=== PATIENT | female | born 1990 | race Caucasian/White ===

== ENCOUNTER 2016-04-05 14:03 | Emergency (ER) | payer OTHER ==
[2016-04-05] MEDS ORDERED: Ondansetron INJ* 2 MG/ML VIAL IV ONE (14:29)
[2016-04-05] MEDS ORDERED: Morphine INJ* 4 MG/ML 1 ML CARPUJECT IV ONE ×2 (14:29→14:34)
[2016-04-05] MEDS ORDERED: NS 0.9% 1000 ML* 1,000 ML IV ONE (14:33)
[2016-04-05 14:43] LABS: Hematocrit 42 % (35-47); Hemoglobin 14.2 g/dl (12.0-16.0); Mean Corpuscular HGB Conc 34 g/dl (31-36); Mean Corpuscular Hemoglobin 30 pg (27-31); Mean Corpuscular Volume 88 fL (80-97); Mean Platelet Volume 8 um3 (7.4-10.4); Red Blood Count 4.76 10^6/ul (4.0-5.4); Red Cell Distribution Width 13 % (10.5-15); White Blood Count 6.4 10^3/ul (3.5-10.8)
[2016-04-05] MEDS ORDERED: Ketorolac INJ* 30 MG/ML 1 ML VIAL IV PUSH ONE (14:44)
[2016-04-05 14:55] LABS: ALT 8 U/L (7-52); AST 13 U/L (13-39); Albumin 4.5 g/dL (3.2-5.2); Alkaline Phosphatase 60 U/L (34-104); Anion Gap 5 mmol/L (2-11); BUN/Creatinine Ratio 14.1 (8-20); Blood Urea Nitrogen 11 mg/dL (6-24); CO2 Carbon Dioxide 28 mmol/L (22-32); Calcium 9.6 mg/dL (8.6-10.3); Chloride 104 mmol/L (101-111); EGFR African American 116.7 (>60); EGFR Non-African American 90.7 (>60); Globulin 2.4 g/dL (2-4); Glucose 88 mg/dL (70-100); Potassium 3.6 mmol/L (3.5-5.0); Sodium 137 mmol/L (133-145); Total Protein 6.9 g/dL (6.4-8.9)
[2016-04-05] MEDS ORDERED: Iohexol 300* (CONTRAST) 10 ML SDV IV ONE (15:23)
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
--- NOTE | 2016-04-05 17:50 | RAD ---
Indication: Right wrist injury 3 views of the wrist demonstrates no fracture. No other bone or joint abnormality is identified. IMPRESSION: NO FRACTURE OF THE WRIST IS NOTED.
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
--- NOTE | 2016-04-05 17:55 | RAD ---
Indication: Right arm pain. 2 views of the right upper arm demonstrates no fracture. AC joint arthritis is noted. IMPRESSION: No fracture of the right upper ARM is noted.
[2016-04-05 18:34] VITALS: BP 116/42
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
== END 2016-04-05 18:59 | disposition home or self-care (01) ==
LOC: ED 14:03
DX: S16.1XXA Strain of muscle, fascia and tendon at neck level, initial encounter (principal); S20.219A Contusion of unspecified front wall of thorax, initial encounter; S30.1XXA Contusion of abdominal wall, initial encounter; S40.021A Contusion of right upper arm, initial encounter; R06.02 Shortness of breath; F41.9 Anxiety disorder, unspecified; V43.52XA Car driver injured in collision with other type car in traffic accident, initial encounter; Y93.9 Activity, unspecified; Y92.9 Unspecified place or not applicable
CPT/HCPCS: 36415; 71260; 72125; 74177; 80053; 84702; 85025; 93005; 96374; 96375; 99282; J1885; J2270; J2405; Q9967

== ENCOUNTER 2018-09-25 16:59 | Emergency (ER) | payer OTHER ==
[2018-09-25] MEDS ORDERED: Ketorolac INJ* 30 MG/ML 1 ML VIAL IM ONE (18:19)
--- NOTE | 2018-09-25 19:48 | ED ---
Upper Extremity Pain - HPI Summary HPI Summary: 27-year-old female presents with complaints of left index finger pain. States she recently had acrylic fingernails put on and then subsequentlyy broke the acrylic nail on her index finger causing a fracture to the underlying fingernail. Patient states she started developing some pain, redness, swelling of the distal finger and went to [facility] earlier today for evaluation. They felt that she may have developed an infection under the fingernail and were recommending removal of the nail to allow any pus under the fingernail to drain however after they attempted to perform a digital block the patient states she developed severe pain at the base of the finger and decided to leave their facility and come here. Complains of swelling at the base of the finger reports she has some decreased range of motion due to the swelling and pain. Denies fever, chills, streaking, drainage, numbness, or tingling. - History of Current Complaint Chief Complaint: EDExtremityUpper Stated Complaint: POSSIBLE INFECTTION LT POINTER FINGER PER PT Time Seen by Provider: 09/25/18 17:46 Hx Obtained From: Patient - Allergies/Home Medications Allergies/Adverse Reactions: Allergies Allergy/AdvReac Type Severity Reaction Status Date / Time No Known Allergies Allergy Verified 09/25/18 17:08 Home Medications: Home Medications Venlafaxine HCl [Effexor XR-] 37.5 mg PO WEEKLY 09/25/18 [History Confirmed ] PMH/Surg Hx/FS Hx/Imm Hx Endocrine/Hematology History: Reports: Hx Thyroid Disease - hypo Denies: Hx Diabetes Infectious Disease History: No Infectious Disease History: Denies: Traveled Outside the [place] in Last 30 Days - Family History Known Family History: Positive: Cardiac Disease, Hypertension, Diabetes - Social History Alcohol Use: None Substance Use Type: Reports: None Smoking Status (MU): Never Smoked Tobacco Review of Systems Negative: Fever, Chills Cardiovascular: Negative Respiratory: Negative Gastrointestinal: Negative Genitourinary: Negative Musculoskeletal: Other - See HPI Skin: Other - See HPI Neurological: Negative All Other Systems Reviewed And Are Negative: Yes Physical Exam - Summary Physical Exam Summary: GENERAL APPEARANCE: Well developed, well nourished, alert and cooperative, and appears to be in no acute distress. CARDIAC: Normal S1 and S2. No S3, S4 or murmurs. Rhythm is regular. There is no peripheral edema, cyanosis or pallor. Extremities are warm and well perfused. Capillary refill is less than 2 seconds. Peripheral pulses intact. LUNGS: Clear to auscultation without rales, rhonchi, wheezing or diminished breath sounds. ABDOMEN: Positive bowel sounds. Soft, nondistended, nontender. No guarding or rebound. No masses or hepatosplenomegally. MUSKULOSKELETAL: Normal muscular development. Normal gait. EXTREMITIES: Generalized tenderness to the left index finger but most prominent at the MCP. Mild edema. No gross deformity or ecchymosis noted. There is mild erythema to the tip of the index finger with a small linear fracture noted to the mid distal fingernail. No drainage noted. SKIN: Skin normal color, texture and turgor. Triage Information Reviewed: Yes Vital Signs On Initial Exam: Initial Vitals Temp Pulse Resp BP Pulse Ox 98.7 F 93 16 147/99 97 09/25/18 17:02 09/25/18 17:02 09/25/18 17:02 09/25/18 17:02 09/25/18 17:02 Vital Signs Reviewed: Yes Diagnostics - Vital Signs Vital Signs Temp Pulse Resp BP Pulse Ox 09/25/18 17:02 98.7 F 93 16 147/99 97 - Laboratory Lab Statement: Any lab studies that have been ordered have been reviewed, and results considered in the medical decision making process. Course/Dx - Course Course Of Treatment: 27-year-old female presents with complaints of left index finger pain. States she recently had acrylic fingernails put on and then subsequentlyy broke the acrylic nail on her index finger causing a fracture to the underlying fingernail. Patient states she started developing some pain, redness, swelling of the distal finger and went to [facility] earlier today for evaluation. They felt that she may have developed an infection under the fingernail and were recommending removal of the nail to allow any pus under the fingernail to drain however after they attempted to perform a digital block the patient states she developed severe pain at the base of the finger and decided to leave their facility and come here. Complains of swelling at the base of the finger reports she has some decreased range of motion due to the swelling and pain. Denies fever, chills, streaking, drainage, numbness, or tingling. Afebrile. VSS. Patient had generalized tenderness to the left index finger but most prominent at the MCP. Mild edema. No gross deformity or ecchymosis noted. There is mild erythema to the tip of the index finger with a small linear fracture noted to the mid distal fingernail. No drainage noted. She was given ketoralac 30 mg IM for the pain with good relief. X-ray of the finger was negative. Since patient had recieved a digital block and there was no evidence of a collection of pus under the nail, decision was made to not attempt an I&D or nail removal at this time. Will place her on Bactrim DS 1 tab twice daily for 7 days to treat the infection. She is to follow up with her PCP in 3 days for reheck of infection. Anticipatory guidance and warning symptoms reviewed with the patient. Verbalizes understanding and agrees with POC. - Diagnoses Provider Diagnoses: Infection of fingernail of left hand Discharge - Sign-Out/Discharge Documenting (check all that apply): Patient Departure Patient Received Moderate/Deep Sedation with Procedure: No - Discharge Plan Condition: Stable Disposition: HOME Prescriptions: Naproxen [Naproxen 500 mg tab] 500 mg PO Q12HR PRN #30 tablet PRN Reason: Pain - Moderate Sulfamethox/Trimethoprim DS* [Bactrim DS 800/160 TAB*] 1 tab PO BID #14 tab Patient Education Materials: Cellulitis (ED) Referrals: Cass Edwards [Primary Care Provider] - 3 Days Additional Instructions: The x-ray of the finger that was performed in the emergency room tonight was normal. I suspect that the pain you are experiencing is secondary to the medication was injected into finger earlier today although it may also be related to the infection therefore we will start should've an antibiotic. Start Bactrim DS 1 tablet twice a day for 7 days. You're given a shot of an anti-inflammatory pain medication called ketorolac at 6:30 pm for your pain. Do not take any other anti-inflammatory pain medications such as ibuprofen (Advil, Motrin), naproxen (Aleve), or aspirin for at least 8 hours after receiving this medication. Take naproxen 500 mg 1 tablet every 12 hours as needed for pain. Soak the finger in a warm water and Epsom salt solution 3-4 times a day. Follow-up with your primary care provider in 3 days for recheck of the infection. Return to the emergency room if you have fever greater than 100.5 F, increased redness or swelling of the finger, severe pain that is not managed with the pain medication, or any worsening of symptoms. - Billing Disposition and Condition Condition: STABLE Disposition: Home
[2018-09-25] MEDS ORDERED: Sulfamethox/Trimethoprim DS 800/160* TAB PO ONE (20:17)
[2018-09-25 20:30] VITALS: BP 115/56
== END 2018-09-25 20:31 | disposition home or self-care (01) ==
LOC: ED 16:59
DX: L03.012 Cellulitis of left finger (principal)
CPT/HCPCS: 73140; 96372; 99282; A9270-GY; J1885

== ENCOUNTER 2019-10-23 19:08 | Inpatient (IN) ==
[2019-10-23 21:30] LABS: Hematocrit 34 % (35-47); Hemoglobin 12.1 g/dL (12.0-16.0); Mean Corpuscular HGB Conc 35 g/dL (31-36); Mean Corpuscular Hemoglobin 30 pg (27-31); Mean Corpuscular Volume 86 fL (80-97); Mean Platelet Volume 7.8 fL (7.4-10.4); Platelet Count 241 10^3/uL (150-450); Red Cell Distribution Width 13 % (10-15); White Blood Count 9.7 10^3/uL (3.5-10.8)
[2019-10-23] MEDS ORDERED: Ondansetron 4 mg VIAL 2 MG/ML 2 ml VIAL IV ONE (21:30)
[2019-10-23] MEDS ORDERED: Lactated Ringers 1000 ml BAG 1,000 ML IV ONE (21:36)
[2019-10-23 21:47] LABS: Urine Benzodiazepine Screen None Detected (None Detect); Urine Opiates Screen None Detected (None Detect)
[2019-10-23] MEDS: Lactated Ringers 1000 ml BAG 1,000 ML IV SCH (21:53)
[2019-10-23] MEDS ORDERED: Oxytocin in LR 20 UNITS/1,000 ML BAG IVPB SCH (22:00)
[2019-10-24] MEDS ORDERED: Morphine 10 MG/ML VIAL (1 ml) IV ONE (01:00)
[2019-10-24] MEDS ORDERED: Promethazine INJ(RESTRICTED) 25 MG/ML 1 ml VIAL IV ONE (01:00)
[2019-10-24] MEDS ORDERED: OBEPIDURAL 250 ML EPIDURAL ONE (04:17)
[2019-10-24] MEDS ORDERED: Sodium Citrate/Citric Acid LIQ 15 ML UDC PO PRN (05:44)
[2019-10-24] MEDS ORDERED: Phenylephrine 40 mcg/mL 10mL (400mcg) SYRINGE IV PUSH PRN ×2 (05:44)
[2019-10-24] MEDS ORDERED: Lactated Ringers 1000 ml BAG 1,000 ML IV ONE (05:44)
[2019-10-24] MEDS ORDERED: Lactated Ringers 1000 ml BAG 500 ML IV PRN ×2 (05:44)
[2019-10-24] MEDS: Lactated Ringers 1000 ml BAG 1,000 ML IV SCH (05:46)
[2019-10-24] MEDS ORDERED: OBEPIDURAL 250 ML EPIDURAL SCH (06:00)
[2019-10-24] MEDS ORDERED: Lactated Ringers 1000 ml BAG 1,000 ML IV SCH ×2 (06:00→08:00)
[2019-10-24] MEDS ORDERED: Witch Hazel PAD JAR TOPICAL PRN (07:59)
[2019-10-24] MEDS ORDERED: Dibucaine 1% OINT 28.35 GM TUBE PR PRN (07:59)
[2019-10-24] MEDS ORDERED: Measles, Mumps,Rubella VACC 0.5 ML/VIAL SUBCUT ONE (07:59)
[2019-10-24] MEDS ORDERED: Oxytocin in LR 20 UNITS/1,000 ML BAG IVPB SCH (08:00)
[2019-10-24] MEDS ORDERED: Lidocaine 1% VIAL 10 MG/ML VIAL ONE (11:27)
[2019-10-25 08:30] LABS: ABS Basophils 0.1 10^3/ul (0-0.2); ABS Eosinophils 0.1 10^3/ul (0-0.6); ABS Lymphocytes 2.2 10^3/ul (1.0-4.8); ABS Monocytes 0.5 10^3/ul (0-0.8); ABS Neutrophils 4.9 10^3/ul (1.5-7.7); Eosinophil % 1.6 %; Hematocrit 28 % (35-47); Hemoglobin 9.8 g/dL (12.0-16.0); Lymphocyte % 28.6 %; Mean Corpuscular HGB Conc 35 g/dL (31-36); Mean Corpuscular Hemoglobin 30 pg (27-31); Mean Corpuscular Volume 87 fL (80-97); Mean Platelet Volume 7.9 fL (7.4-10.4); Platelet Count 170 10^3/uL (150-450); Red Blood Count 3.21 10^6 /uL (3.70-4.87); Red Cell Distribution Width 13 % (10-15); White Blood Count 7.9 10^3/uL (3.5-10.8)
[2019-10-25] MEDS ORDERED: Tetan/Diph/Pertus SYR(Tdap) 0.5 ML SYR(BOOSTRIX) use SYR contains LATEX IM ONE (11:00)
[2019-10-25] MEDS ORDERED: Varicella Virus Vaccine Live 0.5 ML VIAL SUBCUT ONE (14:00)
[2019-10-26 07:53] VITALS: BP 124/85
== END 2019-10-26 10:57 | disposition home or self-care (01) | DRG 560 ==
LOC: MCHOBOUT 19:08 → MCHOB 20:36
PROVIDERS: ADMIT Obstetrics & Gynecology; ATTEND Obstetrics & Gynecology